=== PATIENT | female | born 1985 | race Caucasian/White ===

== ENCOUNTER 2016-08-20 12:36 | Emergency (ER) | payer BC, OTHER ==
[~2016-08-20] VITALS: Ht 162.6 cm; Wt 86.2 kg
[2016-08-20] MEDS ORDERED: SUCRALFATE 1 G TABLET PO STA (12:53)
[2016-08-20] MEDS ORDERED: FAMOTIDINE. 20 MG/2 ML VIAL IV ONE ×2 (13:00→13:12)
[2016-08-20] MEDS ORDERED: MAG HYDROX/AL HYDROX/SIMETH 30 ML LIQUID UDC PO ONE ×2 (13:00→14:00)
[2016-08-20] MEDS ORDERED: MAG HYDROX/AL HYDROX/SIMETH 30 ML LIQUID UDC ONE ×2 (13:12→14:03)
[2016-08-20 13:14] LABS: BASOPHILS % (AUTO) 0.3 % (0.0-2.0); EOSINOPHILS # (AUTO) 0.1 K/uL (0.0-0.7); EOSINOPHILS % (AUTO) 0.9 % (0.0-7.0); HEMATOCRIT 36.6 % (31.2-41.9); HEMOGLOBIN 12.6 g/dL (10.9-14.3); LYMPHOCYTES # (AUTO) 1.7 K/uL (20.0-40.0); LYMPHOCYTES % (AUTO) 15.1 % (20.5-51.5); MEAN CORPUSCULAR HEMOGLOBIN 29.8 uug (24.7-32.8); MEAN CORPUSCULAR HGB CONC 34 g/dL (32.3-35.6); MEAN CORPUSCULAR VOLUME 86.6 fL (75.5-95.3); MONOCYTES # (AUTO) 0.9 K/uL (2.0-10.0); MONOCYTES % (AUTO) 7.5 % (0.0-11.0); NEUTROPHILS # (AUTO) 8.6 K/uL (1.8-8.9); NEUTROPHILS % (AUTO) 76.2 % (38.5-71.5); PLATELET COUNT (AUTO) 162 K/uL (179-408); RED BLOOD CELL COUNT(AUTO) 4.23 MIL/uL (3.63-4.92); RED CELL DISTRIBUTION WIDTH 12.4 % (12.3-17.7); WHITE BLOOD COUNT (AUTO) 11.3 K/uL (3.8-11.8)
[2016-08-20 13:20] LABS: CALCIUM 9.1 mg/dL (8.5-10.1); CARBON DIOXIDE 24 mmol/L (21-32); CHLORIDE 102 mmol/L (98-107); CREATININE 0.6 mg/dL (0.6-1.3); GFR 115 mL/min (>60); GLUCOSE 113 mg/dL (74-106); POTASSIUM 4.1 mmol/L (3.5-5.1); SODIUM SERUM 137 mmol/L (136-145); UREA NITROGEN, BLOOD 8 mg/dL (7-18)
[2016-08-20 13:31] LABS: ALANINE AMINOTRANSFERASE 14 U/L (14-59); ALBUMIN 2.6 g/dL (3.4-5.0); ALKALINE PHOSPHATASE 91 U/L (50-136); ASPARTATE AMINOTRANSFERASE 15 U/L (15-37); BILIRUBIN,DIRECT < 0.1 mg/dL (0.0-0.2); BILIRUBIN,TOTAL 0.3 mg/dL (0.2-1.0); LIPASE 142 U/L (73-393); TOTAL PROTEIN, SERUM 6.9 g/dL (6.4-8.2)
[2016-08-20] MEDS ORDERED: FAMOTIDINE 20 MG TABLET PO ONE (14:00)
[2016-08-20] MEDS ORDERED: FAMOTIDINE 20 MG TABLET ONE (14:03)
--- NOTE | 2016-08-20 14:15 | NUR ---
IV removed. Catheter intact and site benign. Pressure and 4x4 gauze applied to site. No bleeding noted.
--- NOTE | 2016-08-20 14:16 | NUR ---
Patient discharged to home in stable conditon. Written and verbal after care instructions given. Patient verbalizes understanding of instructions. Stressed follow up with pmd/obgyn.
== END 2016-08-20 14:21 | disposition home or self-care (01) ==
LOC: ER 12:36
DX: K21.9 Gastro-esophageal reflux disease without esophagitis (principal)
CPT/HCPCS: 36415; 76705; 80048; 80076; 83690; 85025; 85730; 93005; 96374; 99285; A4663; J3490

== ENCOUNTER 2017-02-08 14:18 | Inpatient (IN) | payer BC, OTHER ==
[~2017-02-08] VITALS: Ht 162.6 cm; Wt 77.1 kg
[2017-02-08 15:01] LABS: *BILIRUBIN,URIN NEGATIVE (NEGATIVE); *BLOOD, URINE NEGATIVE (NEGATIVE); *CLARITY,URINE CLEAR (CLEAR); *COLOR,URINE YELLOW (YELLOW); *KETONES,URINE NEGATIVE (NEGATIVE); *PROTEIN,URINE NEGATIVE (NEGATIVE); *UROBILINOGEN,URINE 0.2 E.U./dl (NORMAL); LEUKOCYTE ESTERASE ,URINE NEGATIVE (NEGATIVE); NITRITE, URINE NEGATIVE (NEGATIVE); PH,URINE 6.5 (5.0-8.0); UGLUCOSE NEGATIVE (NEGATIVE)
[2017-02-08 15:05] LABS: *URINE HCG, QUAL NEGATIVE (NEGATIVE)
--- NOTE | 2017-02-08 15:05 | NUR ---
is at bedside doing his MSE on this patient.
[2017-02-08] MEDS ORDERED: ACETAMINOPHEN 650 MG/20.3 ML LIQUID UDC PO ONE (15:12)
[2017-02-08 15:13] LABS: SQUAMOUS EPITHELIAL CELL,UR FEW /HPF (NONE SEEN); WBC,URINE 0-3 /HPF (0-3)
[2017-02-08] MEDS ORDERED: IBUPROFEN 800 MG TABLET PO ONE (15:15)
[2017-02-08] MEDS ORDERED: ONDANSETRON IV *ER 4 MG/2 ML VIAL IV ONE (15:15)
[2017-02-08] MEDS ORDERED: IV NS 1000 ML 1,000 ML IV ONE (15:15)
[2017-02-08] MEDS ORDERED: IBUPROFEN 800 MG TABLET ONE (15:35)
[2017-02-08] MEDS ORDERED: ACETAMINOPHEN 650 MG/20.3 ML LIQUID UDC ONE (15:35)
[2017-02-08] MEDS ORDERED: ONDANSETRON 4 MG/2 ML VIAL ONE (15:35)
[2017-02-08 15:42] LABS: BASOPHILS # (AUTO) 0.1 K/uL (0.0-8.0); BASOPHILS % (AUTO) 0.8 % (0.0-2.0); EOSINOPHILS # (AUTO) 0.1 K/uL (0.0-0.7); EOSINOPHILS % (AUTO) 0.8 % (0.0-7.0); HEMATOCRIT 40.8 % (37-47); HEMOGLOBIN 13.5 G/DL (12.0-16.0); LYMPHOCYTES # (AUTO) 1.6 K/UL (0.8-4.8); LYMPHOCYTES % (AUTO) 14.7 % (20.5-51.5); MEAN CORPUSCULAR HEMOGLOBIN 27.5 UUG (27.0-31.0); MEAN CORPUSCULAR HGB CONC 33 g/dL (32.0-37.0); MEAN CORPUSCULAR VOLUME 82.9 FL (81.0-99.0); MONOCYTES % (AUTO) 9.5 % (0.0-11.0); NEUTROPHILS % (AUTO) 74.2 % (38.5-71.5); PLATELET COUNT (AUTO) 190 K/UL (150-450); RED BLOOD CELL COUNT(AUTO) 4.92 MIL/UL (4.2-5.4); WHITE BLOOD COUNT (AUTO) 10.8 K/UL (4.0-11.2)
[2017-02-08 15:45] LABS: CREATININE 0.9 mg/dL (0.6-1.3); POTASSIUM 3.7 mmol/L (3.5-5.1)
[2017-02-08 15:51] LABS: BILIRUBIN,TOTAL 0.6 mg/dL (0.2-1.0); TOTAL PROTEIN, SERUM 7.7 g/dL (6.4-8.2)
[2017-02-08] MEDS ORDERED: CEFTRIAXONE 1 G in IV DEXTROSE 5% 50 ML IV ONE (16:58)
[2017-02-08] MEDS ORDERED: AZITHROMYCIN IV 500 MG in IV DEXTROSE 5% 250 ML IV ONE (16:58)
[2017-02-08] MEDS ORDERED: IPRATROPIUM BROMIDE 0.5 MG/2.5 ML NEBU NEB ONE (17:01)
[2017-02-08] MEDS ORDERED: methylPREDNISolone SOD SUCC 125 MG/2 ML VIAL IV ONE (17:01)
[2017-02-08] MEDS ORDERED: ALBUTEROL SULFATE 2.5 MG/3 ML NEBU NEB ONE (17:15)
[2017-02-08] MEDS ORDERED: ALBUTEROL SULFATE 2.5 MG/3 ML NEBU ONE (17:25)
[2017-02-08] MEDS ORDERED: IPRATROPIUM BROMIDE 0.5 MG/2.5 ML NEBU ONE (17:25)
[2017-02-08] MEDS ORDERED: methylPREDNISolone SOD SUCC 40 MG/ML VIAL ONE (17:28)
--- NOTE | 2017-02-08 17:35 | NUR ---
Admitted to [facility] unit accompanied by ER staff per roney. Alert, oriented x4. Not in apparent distress. With chest discomfort upon coughing with body malaise and generalized aches. With ongoing IV antibiotics of Zithromax. Oriented to call light, equipment and unit. Routine admission care rendered
[2017-02-08 18:00] VITALS: BP 127/66
[2017-02-08 20:00] VITALS: BP 117/78
--- NOTE | 2017-02-08 20:15 | NUR ---
PT C/O OF BODY ACHES. MD NOTIFIED, WAITING FOR NEW ADMISSION ORDERS.
[2017-02-08] MEDS ORDERED: DEXAMETHASONE SOD PHOSPHATE 10 MG INJ IV STA (21:24)
[2017-02-08] MEDS ORDERED: MAGNESIUM HYDROXIDE 30 ML LIQUID UDC PO PRN (21:30)
[2017-02-08] MEDS ORDERED: AZITHROMYCIN 250 MG TABLET PO SCH (21:30)
[2017-02-08] MEDS ORDERED: CEFTRIAXONE 2 G in IV DEXTROSE 5% 100 ML IV SCH (21:30)
[2017-02-08] MEDS ORDERED: AZITHROMYCIN 250 MG TABLET PO ONE (21:30)
[2017-02-08] MEDS: HYDROCODONE/APAP 10-325 MG TABLET PO PRN (22:02)
[2017-02-08] MEDS ORDERED: HYDROCODONE/APAP 10-325 MG TABLET ONE (22:13)
[2017-02-08] MEDS ORDERED: DEXAMETHASONE SOD PHOSPHATE 4 MG INJ ONE (22:15)
[2017-02-08] MEDS: IV NS 1000 ML 1,000 ML IV PRN (23:18)
[2017-02-09] MEDS: ZOLPIDEM 5 MG TABLET PO PRN ×2 (01:53→20:54)
[2017-02-09] MEDS ORDERED: ZOLPIDEM 5 MG TABLET ONE (02:05)
[2017-02-09 05:07] VITALS: BP 121/73
--- NOTE | 2017-02-09 06:29 | NUR ---
PT SLEPT INTERMITTENTLY, NO ACUTE DISTRESS, NO SOB. PT NOTED TO HAVE OCCASIONAL DRY NON PRODUCTIVE COUGH, C/O OF SORE THROAT AND BODY ACHES/PAIN. ADMINISTERED MEDS ORDERED. IVF RUNNING, NO INFILTRATION NOTED. PT IS AFEBRILE. CALL LIGHT WITHIN REACH, SAFETY MEASURES IN PLACE. WILL CONTINUE TO MONITOR.
[2017-02-09 07:19] LABS: BILIRUBIN,TOTAL 0.3 mg/dL (0.2-1.0); CREATININE 0.8 mg/dL (0.6-1.3); MAGNESIUM 2.1 mg/dL (1.8-2.4); PHOSPHOROUS 2.4 mg/dL (2.5-4.9); POTASSIUM 3.9 mmol/L (3.5-5.1); TOTAL PROTEIN, SERUM 7.6 g/dL (6.4-8.2)
[2017-02-09 07:41] LABS: EOSINOPHILS % (AUTO) 0.1 % (0.0-7.0); HEMATOCRIT 40.3 % (37-47); HEMOGLOBIN 13.5 G/DL (12.0-16.0); LYMPHOCYTES # (AUTO) 0.6 K/UL (0.8-4.8); LYMPHOCYTES % (AUTO) 8.5 % (20.5-51.5); MEAN CORPUSCULAR HEMOGLOBIN 28.2 UUG (27.0-31.0); MEAN CORPUSCULAR HGB CONC 34 g/dL (32.0-37.0); MONOCYTES # (AUTO) 0.1 K/UL (0.1-1.30); MONOCYTES % (AUTO) 1.4 % (0.0-11.0); NEUTROPHILS # (AUTO) 6.2 K/UL (1.8-8.9); PLATELET COUNT (AUTO) 165 K/UL (150-450)
[2017-02-09 08:04] LABS: WHITE BLOOD COUNT (AUTO) 6.9 K/UL (4.0-11.2)
[2017-02-09] MEDS: HYDROCODONE/APAP 10-325 MG TABLET PO PRN ×2 (08:04→20:55)
[2017-02-09] MEDS: AZITHROMYCIN 250 MG TABLET PO SCH (09:52)
[2017-02-09 10:22] LABS: BAND % (MANUAL) 9 % (0-10); LYMPHOCYTES % (MANUAL) 10 % (20-40); MONOCYTES % (MANUAL) 5 % (2-10); NEUTROPHILS % (MANUAL) 76 % (42-75)
[2017-02-09 11:03] VITALS: BP 116/65
[2017-02-09] MEDS: HYDROCODONE BIT/HOMATROPINE 5 ML UDC PO PRN ×2 (11:51→18:31)
[2017-02-09] MEDS: ONDANSETRON 4 MG/2 ML VIAL IV PRN (11:59)
[2017-02-09 15:05] VITALS: BP 129/64
[2017-02-09] MEDS: OXYMETAZOLINE NASAL 0.05% 15 ML SPRAY NS PRN (15:06)
[2017-02-09] MEDS: ALBUTEROL SULFATE 2.5 MG/ 0.5 ML NEBU NEB PRN (15:47)
[2017-02-09] MEDS: IPRATROPIUM BROMIDE 0.5 MG/2.5 ML NEBU NEB PRN (15:47)
[2017-02-09] MEDS ORDERED: NEUTRA PHOS PACKET PO ONE (17:00)
[2017-02-09] MEDS ORDERED: ALBUTEROL SULFATE 1.25 MG/3 ML NEBU NEB SCH (19:30)
[2017-02-09] MEDS ORDERED: LEVALBUTEROL HCL NEB 0.63 MG/3 ML NEBU NEB SCH (19:30)
--- NOTE | 2017-02-09 19:40 | NUR ---
PT RECEIVED IN BED, AWAKE. A/OX4. ABLE TO MAKE NEEDS KNOWN. V/S STABLE. IN NO ACUTE DISTRESS. PT C/O OF HEADACHE 12/29. WILL ADMIN PAIN MEDICATION ORDERED. IVF INFUSING. SAFETY MEASURES IMPLEMENTED. CALL LIGHT WITHIN REACH
[2017-02-09 20:00] VITALS: BP 126/83
[2017-02-09] MEDS: IV NS 1000 ML 1,000 ML IV PRN (20:53)
[2017-02-09] MEDS: LACTOBACILLUS RHAMNOSUS GG 1 EACH CAPSULE PO SCH (20:54)
[2017-02-09] MEDS: CEFTRIAXONE 2 G in IV DEXTROSE 5% 100 ML IV SCH (20:54)
[2017-02-10] MEDS: LEVALBUTEROL HCL NEB 0.63 MG/3 ML NEBU NEB SCH ×4 (01:30→19:30)
--- NOTE | 2017-02-10 01:51 | NUR ---
Pt asleep. No respiratory distress noted. HHN tx not given. Medication not available. cargo supervisor Stephanie and charge nurse Margaret hinkle.
--- NOTE | 2017-02-10 05:50 | NUR ---
END OF SHIFT NOTES. PT SLEPT WELL THROUGHOUT SHIFT. IN STABLE CONDITION. IV ABX INFUSED. IVF INFUSING. BREATHING TX UNAVAILABLE. PT AWARE. NO C/O SOB. ALL NEEDS ATTENDED. SAFETY MAINTAINED. CALL LIGHT WITHIN REACH.
[2017-02-10 06:02] VITALS: BP 106/64
[2017-02-10 07:00] LABS: CREATININE 0.8 mg/dL (0.6-1.3); PHOSPHOROUS 4.1 mg/dL (2.5-4.9)
--- NOTE | 2017-02-10 08:00 | NUR ---
AWAKE COOPERATE WELL NO SOB OR PAIN CONTINUE IVF RESTING WITH CALL LIGHT IN REACH
[2017-02-10] MEDS: AZITHROMYCIN 250 MG TABLET PO SCH (08:41)
[2017-02-10] MEDS: LACTOBACILLUS RHAMNOSUS GG 1 EACH CAPSULE PO SCH ×2 (08:41→20:23)
[2017-02-10] MEDS: HYDROCODONE/APAP 10-325 MG TABLET PO PRN ×3 (08:43→21:15)
--- NOTE | 2017-02-10 10:30 | NUR ---
pt seen on rounding. pt vitals stable. no signs of acute distress. blood sugar within normal limits. no loc changes. no sob noted. pt is awake and alert. pt responds to commands. hr and rr wnl. pt is afebrile. pt is ambulatory with stready gait. no pain noted. will continue to reassess. Addendum: 02/10/17 at 1242 by CONY OTTO RN no blood sugar checks done or ordered.
[2017-02-10 11:24] VITALS: BP 102/64
[2017-02-10] MEDS: IV NS 1000 ML 1,000 ML IV PRN (12:00)
[2017-02-10] MEDS ORDERED: [UNRECOGNIZED DRUG - OTHER] PO (12:38)
[2017-02-10] MEDS: ACETAMINOPHEN 325 MG TABLET PO PRN (12:45)
[2017-02-10] MEDS: ALBUTEROL SULFATE 2.5 MG/ 0.5 ML NEBU NEB PRN ×2 (14:21→19:33)
[2017-02-10] MEDS: IPRATROPIUM BROMIDE 0.5 MG/2.5 ML NEBU NEB PRN ×2 (14:21→19:33)
--- NOTE | 2017-02-10 14:31 | NUR ---
pt was complaining of having chest pain after breathing treatments. notified rt who was giving treatments. rt states that pt breath sounds starting to clear up. vitals wnl. pt continues to complain about headache. pt given tylenol. will continue to reasssess
[2017-02-10 15:08] VITALS: BP 122/76
--- NOTE | 2017-02-10 15:35 | NUR ---
C/O OF H/A MEDICATION PRN NORCO GIVEN AND APPLY ICE PK TO FOREHEAD FOR COMFORT STATE FEEL BETTER
--- NOTE | 2017-02-10 16:30 | NUR ---
RESTING WELL AT THIS TIME STATE MEDICATION HELP TO RELIEF H/A PAIN
--- NOTE | 2017-02-10 17:00 | NUR ---
STABLE HEMODYNAMIC SAFETY MEASURE PROVIDED CALL LIGHT WITHIN REACH
--- NOTE | 2017-02-10 19:57 | NUR ---
RECEIVED SHIFT REPORT FROM PREVIOUS SHIFT NURSE. PATIENT IS IN STABLE CONDITION, NO S/S OF DISTRESS. A/O X3. PATIENT HAS NO COMPLAINTS OF PAIN AT THIS TIME. PATIENT ASKED FOR COUGH MEDICATION AND WILL BE PROVIDED. BED IN LOCKED/LOW POSITION WITH SIDE RAILS UP X2. CALL LIGHT WITHIN REACH. SAFETY AND COMFORT WILL BE PROVIDED THROUGHOUT SHIFT.
[2017-02-10 20:00] VITALS: BP 117/76
[2017-02-10] MEDS: HYDROCODONE BIT/HOMATROPINE 5 ML UDC PO PRN (20:23)
--- NOTE | 2017-02-10 21:00 | NUR ---
PT RECEIVED IN BED, AWAKE. IN STABLE CONDITION. C/O OF HEADACHE 11/28. PT HAS ICE PACK PLACED ON FOREHEAD FOR HEADACHE RELIEF. WILL ADMIN PAIN MEDICATION ORDERED. IVF INFUSING. PT REQUEST AMBIEN TO AIDE IN SLEEP. SAFETY MEASURES IMPLEMENTED. CALL LIGHT WITHIN REACH.
[2017-02-10] MEDS: CEFTRIAXONE 2 G in IV DEXTROSE 5% 100 ML IV SCH (21:10)
[2017-02-10] MEDS: ZOLPIDEM 5 MG TABLET PO PRN (21:10)
[2017-02-11] MEDS: IPRATROPIUM BROMIDE 0.5 MG/2.5 ML NEBU NEB PRN ×2 (01:13→19:22)
[2017-02-11] MEDS: ALBUTEROL SULFATE 2.5 MG/ 0.5 ML NEBU NEB PRN ×2 (01:13→19:22)
[2017-02-11] MEDS: HYDROCODONE BIT/HOMATROPINE 5 ML UDC PO PRN ×3 (02:04→21:36)
[2017-02-11] MEDS: IV NS 1000 ML 1,000 ML IV PRN ×2 (02:05→16:18)
[2017-02-11] MEDS: HYDROCODONE/APAP 10-325 MG TABLET PO PRN ×3 (03:08→20:24)
[2017-02-11 06:00] VITALS: BP 114/63
--- NOTE | 2017-02-11 06:30 | NUR ---
END OF SHIFT NOTES. PT SLEPT INTERMITTENTLY THROUGHOUT SHIFT. IN STABLE CONDITION. IV ABX INFUSED. IVF INFUSING. PT C/O OF SORE THROAT AND HEADACHE. PAIN MANAGED. ALL NEEDS ATTENDED. SAFETY MAINTAINED. CALL LIGHT WITHIN REACH.
[2017-02-11 07:01] LABS: BASOPHILS % (AUTO) 0.7 % (0.0-2.0); EOSINOPHILS # (AUTO) 0.2 K/uL (0.0-0.7); EOSINOPHILS % (AUTO) 2.8 % (0.0-7.0); HEMATOCRIT 38.2 % (31.2-41.9); HEMOGLOBIN 12.8 g/dL (10.9-14.3); LYMPHOCYTES # (AUTO) 2.5 K/uL (20.0-40.0); LYMPHOCYTES % (AUTO) 39.5 % (20.5-51.5); MEAN CORPUSCULAR HEMOGLOBIN 28.1 uug (24.7-32.8); MEAN CORPUSCULAR HGB CONC 33 g/dL (32.3-35.6); MONOCYTES # (AUTO) 0.5 K/uL (2.0-10.0); MONOCYTES % (AUTO) 8.1 % (0.0-11.0); NEUTROPHILS # (AUTO) 3.1 K/uL (1.8-8.9); NEUTROPHILS % (AUTO) 48.9 % (38.5-71.5); PLATELET COUNT (AUTO) 198 K/uL (179-408); RED BLOOD CELL COUNT(AUTO) 4.55 MIL/uL (3.63-4.92); WHITE BLOOD COUNT (AUTO) 6.4 K/uL (3.8-11.8)
[2017-02-11 07:13] LABS: CREATININE 0.7 mg/dL (0.6-1.3); PHOSPHOROUS 4.6 mg/dL (2.5-4.9); POTASSIUM 4.1 mmol/L (3.5-5.1)
[2017-02-11] MEDS: LACTOBACILLUS RHAMNOSUS GG 1 EACH CAPSULE PO SCH ×2 (08:39→20:23)
[2017-02-11] MEDS: AZITHROMYCIN 250 MG TABLET PO SCH (08:40)
--- NOTE | 2017-02-11 09:00 | NUR ---
beginning of shift assessment complete. pt stable, awake. no s/s respiratory distress. pt has non productive cough and c/o sore throat. norco and ice pack given for headache. call light is within patients reach. will continue to monitor.
[2017-02-11 11:46] VITALS: BP 116/68
[2017-02-11] MEDS: LEVALBUTEROL HCL NEB 0.63 MG/3 ML NEBU NEB SCH ×2 (12:49→19:22)
[2017-02-11] MEDS ORDERED: ALBUTEROL SULFATE 1.25 MG/3 ML NEBU NEB SCH (13:30)
[2017-02-11 15:37] VITALS: BP 134/92
--- NOTE | 2017-02-11 17:00 | NUR ---
IV SITE WAS LEAKING ,WILL RESTART A NEW ONE AFTER DINNER
--- NOTE | 2017-02-11 18:00 | NUR ---
STABLE HEMODYNAMIC NO ACUTE DISTRESS PAIN UNDER CONTROL SAFETY MEASURE PROVIDED CALL PRECIADO IN REACH
--- NOTE | 2017-02-11 18:30 | NUR ---
TRY TO START A NEW LINE IV BUT UNABLE AT THIS TIME
--- NOTE | 2017-02-11 19:40 | NUR ---
PT RECEIVED IN BED, AWAKE. FRIEND AT BEDSIDE. A/OX4. ABLE TO MAKE NEEDS KNOWN. V/S STABLE. IN NO ACUTE DISTRESS. PT CONT TO C/O HEADACHE 12/29. WILL ADMIN PAIN MEDICATION ORDERED. NO IV IN PLACE. WILL START IV. SAFETY MEASURES IMPLEMENTED. CALL LIGHT WITHIN REACH
[2017-02-11 20:00] VITALS: BP 131/79
[2017-02-11] MEDS: ZOLPIDEM 5 MG TABLET PO PRN (20:23)
[2017-02-11] MEDS: CEFTRIAXONE 1 G in IV DEXTROSE 5% 50 ML IV SCH (21:35)
[2017-02-11] MEDS: DOCUSATE SODIUM 100 MG CAPSULE PO SCH (21:35)
[2017-02-11] MEDS: HYDROCODONE/APAP 5-325MG TABLET PO PRN (22:54)
[2017-02-12 04:52] VITALS: BP 109/74
--- NOTE | 2017-02-12 06:20 | NUR ---
END OF SHIFT NOTES. PT SLEPT WELL THROUGHOUT SHIFT. IN STABLE CONDITION. IV ABX INFUSED. PAIN MANAGED. ALL NEEDS ATTENDED. SAFETY MAINTAINED. CALL LIGHT WITHIN REACH.
[2017-02-12] MEDS: HYDROCODONE/APAP 5-325MG TABLET PO PRN ×2 (08:45→20:10)
[2017-02-12] MEDS: OMEGA-3 FATTY ACIDS/FISH OIL CAPSULE PO SCH (08:46)
[2017-02-12] MEDS: [UNRECOGNIZED DRUG - OTHER] PO SCH (08:46)
[2017-02-12] MEDS: AZITHROMYCIN 250 MG TABLET PO SCH (08:46)
[2017-02-12] MEDS: LACTOBACILLUS RHAMNOSUS GG 1 EACH CAPSULE PO SCH ×2 (08:46→20:09)
[2017-02-12] MEDS: NORETHINDRONE PO SCH (08:46)
[2017-02-12] MEDS: LEVALBUTEROL HCL NEB 0.63 MG/3 ML NEBU NEB PRN ×2 (11:43→17:18)
[2017-02-12 11:55] VITALS: BP 113/73
[2017-02-12] MEDS: HYDROCODONE BIT/HOMATROPINE 5 ML UDC PO PRN ×2 (12:30→22:01)
[2017-02-12 15:37] VITALS: BP 101/68
[2017-02-12] MEDS: ACETAMINOPHEN 325 MG TABLET PO PRN (15:59)
--- NOTE | 2017-02-12 19:30 | NUR ---
Pt alert, awake, and oriented x 4. Non productive cough still present. States generalized pain to her body 6/10 and requesting pain medication. No fever noted. Pt to continue Rocephin atx IV therapy. Pt made aware of available breathing tx. Call light placed within reach. T 98.5. Continue to monitor.
--- NOTE | 2017-02-12 19:33 | NUR ---
NO CHANGES NOTED, PT IS SITTING IN BED COMFORTABLY. PT IS NOTED TO HAVE HOARSE VOICE, AND SOME LEFT SIDE CHEST WHEEZING. NO PAIN NOTED. IV INTACT/PATENT. ALL SAFETY NEEDS ARE MET. PT IS CALM, ALERT AND ORIENTED X3.
[2017-02-12 20:00] VITALS: BP 126/68
[2017-02-12] MEDS: DOCUSATE SODIUM 100 MG CAPSULE PO SCH (20:09)
[2017-02-12] MEDS: CEFTRIAXONE 1 G in IV DEXTROSE 5% 50 ML IV SCH (20:17)
[2017-02-12] MEDS: ZOLPIDEM 5 MG TABLET PO PRN (22:01)
[2017-02-12] MEDS ORDERED: methylPREDNISolone SOD SUCC 40 MG/ML VIAL ONE (22:43)
[2017-02-12] MEDS: methylPREDNISolone SOD SUCC 40 MG/ML VIAL IV SCH (23:49)
[2017-02-13 05:16] VITALS: BP 117/79
--- NOTE | 2017-02-13 05:31 | NUR ---
Pt awake alert with no complains of pain at this time. States she will let us now if she wants a breathing tx done. No reaction to current Rocephin IV abx. Continue to monitor. Call light placed within reach. T-98.3
--- NOTE | 2017-02-13 06:00 | NUR ---
PT ALERT AWAKE IN NO DISTRESS. DENIES ANY PAIN AT THIS TIME. NO PRODUCTIVE COUGH PRESENT OR REACTION TO ROCEPHIN ABX IV TX. PT AWARE OF CHEST X-RAY AND LABS. CONTINUE TO MONITOR.
[2017-02-13 06:48] LABS: MAGNESIUM 2.2 mg/dL (1.8-2.4); PHOSPHOROUS 2.8 mg/dL (2.5-4.9)
[2017-02-13 06:49] LABS: BASOPHILS % (AUTO) 0.2 % (0.0-2.0); EOSINOPHILS % (AUTO) 0.3 % (0.0-7.0); HEMATOCRIT 44.3 % (37-47); HEMOGLOBIN 15.2 G/DL (12.0-16.0); LYMPHOCYTES # (AUTO) 1.1 K/UL (0.8-4.8); LYMPHOCYTES % (AUTO) 12.6 % (20.5-51.5); MEAN CORPUSCULAR HEMOGLOBIN 28.5 UUG (27.0-31.0); MEAN CORPUSCULAR HGB CONC 34 g/dL (32.0-37.0); MEAN CORPUSCULAR VOLUME 82.9 FL (81.0-99.0); MONOCYTES # (AUTO) 0.1 K/UL (0.1-1.30); MONOCYTES % (AUTO) 0.9 % (0.0-11.0); NEUTROPHILS # (AUTO) 7.5 K/UL (1.8-8.9); PLATELET COUNT (AUTO) 303 K/UL (150-450); RED BLOOD CELL COUNT(AUTO) 5.35 MIL/UL (4.2-5.4); WHITE BLOOD COUNT (AUTO) 8.7 K/UL (4.0-11.2)
--- NOTE | 2017-02-13 07:42 | NUR ---
PT RECEIVED IN BED, SLEEPING. A/OX4. ABLE TO MAKE NEEDS KNOWN. V/S STABLE. IN NO ACUTE DISTRESS. PT CONT TO C/O HEADACHE 12/29. WILL ADMIN PAIN MEDICATION ORDERED. SAFETY MEASURES IMPLEMENTED. CALL LIGHT WITHIN REACH
[2017-02-13] MEDS: LACTOBACILLUS RHAMNOSUS GG 1 EACH CAPSULE PO SCH ×2 (08:04→20:39)
[2017-02-13] MEDS: OMEGA-3 FATTY ACIDS/FISH OIL CAPSULE PO SCH (08:04)
[2017-02-13] MEDS: AZITHROMYCIN 250 MG TABLET PO SCH (08:04)
[2017-02-13] MEDS: OXYMETAZOLINE NASAL 0.05% 15 ML SPRAY NS PRN (08:06)
[2017-02-13] MEDS: methylPREDNISolone SOD SUCC 40 MG/ML VIAL IV SCH ×2 (08:18→20:39)
[2017-02-13] MEDS: NORETHINDRONE PO SCH (08:37)
[2017-02-13] MEDS: [UNRECOGNIZED DRUG - OTHER] PO SCH (08:37)
[2017-02-13 11:25] VITALS: BP 111/75
[2017-02-13 15:08] VITALS: BP 107/73
[2017-02-13] MEDS ORDERED: MORPHINE SULFATE 2 MG/1 ML DISP.SYRIN IV ONE (16:30)
[2017-02-13] MEDS: HYDROCODONE/APAP 5-325MG TABLET PO PRN (17:58)
--- NOTE | 2017-02-13 18:05 | NUR ---
Pt awake alert with complains of pain at this time.norco 5mg given per md orders
[2017-02-13] MEDS: LEVALBUTEROL HCL NEB 0.63 MG/3 ML NEBU NEB PRN (19:27)
--- NOTE | 2017-02-13 19:30 | NUR ---
PT IN BED DIANA AWAKE AND ORIENTED X 4. STATES SHE WILL REQUEST A BREATHING TX AND PAIN MEDICATION LATER TONIGHT. C/O GENERALIZED PAIN AND WEAKNESS. MINOR WHEEZING PRESENT TO LEFT UPPER LOBE. BP 93/58. T 98.4. CONTINUE TO MONITOR. CALL LIGHT PLACED WITHIN REACH.
[2017-02-13 20:00] VITALS: BP 93/58
[2017-02-13] MEDS: DOCUSATE SODIUM 100 MG CAPSULE PO SCH (20:39)
[2017-02-13] MEDS: CEFTRIAXONE 1 G in IV DEXTROSE 5% 50 ML IV SCH (20:39)
[2017-02-13] MEDS: HYDROMORPHONE 1 MG/1 ML DISP.SYRIN IV PRN (21:06)
[2017-02-13] MEDS: ZOLPIDEM 5 MG TABLET PO PRN (22:27)
[2017-02-13] MEDS: HYDROCODONE BIT/HOMATROPINE 5 ML UDC PO PRN (22:27)
[2017-02-14 05:48] VITALS: BP 100/45
--- NOTE | 2017-02-14 07:30 | NUR ---
PT RECEIVED IN BED, SLEEPING. A/OX4. ABLE TO MAKE NEEDS KNOWN. V/S STABLE. IN NO ACUTE DISTRESS. . SAFETY MEASURES IMPLEMENTED. CALL LIGHT WITHIN REACH
[2017-02-14] MEDS: [UNRECOGNIZED DRUG - OTHER] PO SCH (08:06)
[2017-02-14] MEDS: LACTOBACILLUS RHAMNOSUS GG 1 EACH CAPSULE PO SCH ×2 (08:06→20:47)
[2017-02-14] MEDS: AZITHROMYCIN 250 MG TABLET PO SCH (08:06)
[2017-02-14] MEDS: NORETHINDRONE PO SCH (08:06)
[2017-02-14] MEDS: OMEGA-3 FATTY ACIDS/FISH OIL CAPSULE PO SCH (08:06)
[2017-02-14] MEDS: methylPREDNISolone SOD SUCC 40 MG/ML VIAL IV SCH ×2 (08:07→20:26)
[2017-02-14 11:18] VITALS: BP 125/87
[2017-02-14] MEDS: HYDROMORPHONE 1 MG/1 ML DISP.SYRIN IV PRN ×3 (14:24→23:50)
[2017-02-14 15:04] VITALS: BP 125/80
[2017-02-14] MEDS: LEVALBUTEROL HCL NEB 0.63 MG/3 ML NEBU NEB PRN ×2 (17:00→21:34)
[2017-02-14] MEDS: HYDROCODONE BIT/HOMATROPINE 5 ML UDC PO PRN ×2 (17:05→23:13)
[2017-02-14 20:00] VITALS: BP 146/81
--- NOTE | 2017-02-14 20:00 | NUR ---
RECEIVED PATIENT AWAKE IN BED. PATIENT IS A/O X4. C/O PAIN, GENERALIZED 11/28. PATIENT GIVEN DILAUDID 0.5MG IV PRN PER LEATHER DRESSER. VSS. H/L INTACT AND PATENT. ON RA SATING 97%. NO RESP. DISTRESS NOTED. DENIES SOB. CALL LIGHT IN REACH. ALL NEEDS ATTENDED. WILL CONTINUE TO MONITOR.
--- NOTE | 2017-02-14 20:10 | NUR ---
PATIENT ASKING IF SOMETHING CAN BE ORDERED FOR SLEEP TONIGHT. STATED THAT SHE HAD AMBIEN LAST NIGHT AND IT WAS INEFFECTIVE. CALLED OUT TO DR. SMITH FOR FURTHER ORDERS. RECEIVED ORDER FOR PATIENT TO HAVE ATIVAN 1MG IV X1 FOR SLEEP. ALL NEEDS ATTENDED. WILL CONTINUE TO MONITOR.
[2017-02-14] MEDS: CEFTRIAXONE 1 G in IV DEXTROSE 5% 50 ML IV SCH (20:26)
[2017-02-14] MEDS ORDERED: LORAZEPAM 2 MG/1 ML VIAL IV ONE (20:45)
[2017-02-14] MEDS: DOCUSATE SODIUM 100 MG CAPSULE PO SCH (20:47)
[2017-02-14] MEDS ORDERED: AZITHROMYCIN IV 500 MG in IV DEXTROSE 5% 250 ML IV SCH (21:00)
--- NOTE | 2017-02-14 21:16 | NUR ---
PATIENT ASKING FOR ATIVAN. PATIENT GIVEN ATIVAN 1MG IV PRN PER CONTINUOUS MINING MACHINE LODE MINER. VSS. WILL CONTINUE TO MONITOR.
--- NOTE | 2017-02-14 23:00 | NUR ---
PATIENT WIDE AWAKE IN BED. ATIVAN INEFFECTIVE. PATIENT STATED THAT SHE KEEPS THINKING ABOUT HER BABY AT HOME AND IS SAD ABOUT BEING AWAY FROM HER NEW BABY FOR SO LONG. PROVIDED EMOTIONAL SUPPORT AND MADE PATIENT COMFORTABLE. WILL CONTINUE TO MONITOR AND ASSESS.
--- NOTE | 2017-02-15 01:05 | NUR ---
PATIENT STILL AWAKE AND FRUSTRATED THAT SHE CANT SLEEP. STATING, "I DON'T UNDERSTAND WHY I CANT GO TO SLEEP. I WANT AND NEED TO SLEEP SO BAD." PATIENT AGREED TO TRY AMBIEN AGAIN TO SEE IF IT WOULD WORK TONIGHT. PATIENT GIVEN AMBIEN 5MG PO PRN FOR SLEEP AND TYLENOL 650MG PO PRN FOR MILD DISCOMFORT. VSS. ON RA SATING 97-98%. DENIES ANY SOB. CALL LIGHT IN REACH. ALL NEEDS ATTENDED, WILL CONTINUE TO MONITOR AND ASSESS.
[2017-02-15] MEDS: ACETAMINOPHEN 325 MG TABLET PO PRN ×2 (01:06→10:48)
[2017-02-15] MEDS: ZOLPIDEM 5 MG TABLET PO PRN (01:06)
--- NOTE | 2017-02-15 02:00 | NUR ---
PATIENT STILL AWAKE IN BED. PATIENT GIVEN CUP OF HOT MILK. WILL CONTINUE TO MONITOR.
--- NOTE | 2017-02-15 02:30 | NUR ---
PATIENT ASLEEP IN BED. SLEEPING WELL. NO S/S OF PAIN OR DISCOMFORT. NO RESP. DISTRESS NOTED. CALL LIGHT IN REACH. PATIENT MONITORED CLOSELY. ALL NEEDS ATTENDED. WILL CONTINUE TO MONITOR.
[2017-02-15] MEDS: LEVALBUTEROL HCL NEB 0.63 MG/3 ML NEBU NEB PRN (06:30)
--- NOTE | 2017-02-15 06:41 | NUR ---
PATIENT ASLEEP. SLEEPING WELL. HR STABLE AND RESPIRATIONS WNL. LAB NOTIFIED TO COME BACK TO DRAW AM LABS AROUND 8AM. PATIENT WANTED TO SLEEP. WILL CHECK BP WHEN PATIENT WAKES UP. NO S/S OF ANY SOB OR RESP. DISTRESS. WILL CONTINUE TO MONITOR.
[2017-02-15 07:16] VITALS: BP 115/78
--- NOTE | 2017-02-15 08:00 | NUR ---
AWAKE ALERT COOPERASTE WELL NO PAIN OR SOB RA O2 SAT WNL HL INPLACE RFA HAND RESTING WELL WITH CALL LIGHT IN REACH
[2017-02-15] MEDS: LACTOBACILLUS RHAMNOSUS GG 1 EACH CAPSULE PO SCH ×2 (08:21→20:16)
[2017-02-15] MEDS: methylPREDNISolone SOD SUCC 40 MG/ML VIAL IV SCH ×2 (08:21→20:15)
[2017-02-15] MEDS: OMEGA-3 FATTY ACIDS/FISH OIL CAPSULE PO SCH (08:21)
[2017-02-15] MEDS: [UNRECOGNIZED DRUG - OTHER] PO SCH (08:22)
[2017-02-15] MEDS: NORETHINDRONE PO SCH (08:22)
[2017-02-15] MEDS: HYDROMORPHONE 1 MG/1 ML DISP.SYRIN IV PRN ×4 (08:36→23:41)
[2017-02-15 08:47] LABS: BASOPHILS % (AUTO) 0.1 % (0.0-2.0); EOSINOPHILS % (AUTO) 0.1 % (0.0-7.0); HEMATOCRIT 43.5 % (37-47); HEMOGLOBIN 14.3 G/DL (12.0-16.0); LYMPHOCYTES # (AUTO) 2.1 K/UL (0.8-4.8); LYMPHOCYTES % (AUTO) 10.8 % (20.5-51.5); MEAN CORPUSCULAR HEMOGLOBIN 27.6 UUG (27.0-31.0); MEAN CORPUSCULAR HGB CONC 33 g/dL (32.0-37.0); MEAN CORPUSCULAR VOLUME 83.8 FL (81.0-99.0); MONOCYTES # (AUTO) 0.9 K/UL (0.1-1.30); MONOCYTES % (AUTO) 4.5 % (0.0-11.0); NEUTROPHILS # (AUTO) 16.2 K/UL (1.8-8.9); NEUTROPHILS % (AUTO) 84.5 % (38.5-71.5); PLATELET COUNT (AUTO) 353 K/UL (150-450); RED BLOOD CELL COUNT(AUTO) 5.19 MIL/UL (4.2-5.4); WHITE BLOOD COUNT (AUTO) 19.3 K/UL (4.0-11.2)
[2017-02-15 08:49] LABS: CREATININE 0.8 mg/dL (0.6-1.3); MAGNESIUM 2.1 mg/dL (1.8-2.4); PHOSPHOROUS 4.6 mg/dL (2.5-4.9); POTASSIUM 4.1 mmol/L (3.5-5.1)
[2017-02-15] MEDS ORDERED: AZITHROMYCIN IV 500 MG in IV DEXTROSE 5% 250 ML IV SCH (09:00)
[2017-02-15] MEDS: ONDANSETRON 4 MG/2 ML VIAL IV PRN (10:47)
[2017-02-15 11:50] VITALS: BP 120/83
--- NOTE | 2017-02-15 12:00 | NUR ---
RESTING WELL EAT LUNCH MOD AMT STATE PAIN MED HELP TO RELIEF PAIN CONTINUE IVPB ANTIBIOTICS
--- NOTE | 2017-02-15 12:00 | NUR ---
REMIND PATIENT THAT NEED URINE AND SPUTUM TO LAB [facility] IF POSS,UNDERSTAND
--- NOTE | 2017-02-15 15:00 | NUR ---
DR CARTER SEEN PATIENT AND LAB RESULT THIS PM ,NO ACUTE DISTRESS OR PAIN OR SOB OOB AMB WELL SELF
[2017-02-15 16:00] VITALS: BP 118/78
--- NOTE | 2017-02-15 17:00 | NUR ---
PATIENT WAS RESTING WELL MOST OF THE TIME NO ACUTE DISTRESS SAFETY MEASURE PROVIDED CALL LIGHT WITHIN REACH PAIN UNDER CONTROL
--- NOTE | 2017-02-15 19:30 | NUR ---
RECEIVED PATIENT LAYING IN BED. COMFORTABLE. NO ACUTE DISTRESS NOTED. A&O X 4. SKIN INTACT. SAFETY INITIATED. CALL LIGHT WITHIN REACH. WILL CONTINUE TO MONITOR.
[2017-02-15] MEDS: CEFTRIAXONE 1 G in IV DEXTROSE 5% 50 ML IV SCH (20:14)
--- NOTE | 2017-02-15 20:15 | NUR ---
PATIENT RAN A SLIGHT TEMP. 99.8. PATIENT FEELING WARM. NORCO 5-325 GIVEN, WILL CONTINUE TO MONITOR.
[2017-02-15] MEDS: DOCUSATE SODIUM 100 MG CAPSULE PO SCH (20:16)
[2017-02-15] MEDS: HYDROCODONE/APAP 5-325MG TABLET PO PRN (20:16)
[2017-02-15 20:33] VITALS: BP 133/76
[2017-02-16] MEDS: ZOLPIDEM 5 MG TABLET PO PRN (01:18)
--- NOTE | 2017-02-16 01:18 | NUR ---
PATIENT CANNOT SLEEP, REQUEST AMBIEN. GIVEN AMBIEN WILL CONTINUE TO MONITOR.
[2017-02-16] MEDS ORDERED: LORAZEPAM 2 MG/1 ML VIAL IV ONE (01:45)
[2017-02-16] MEDS ORDERED: LORAZEPAM 2 MG/1 ML VIAL ONE (01:59)
--- NOTE | 2017-02-16 02:18 | NUR ---
PATIENT STILL AWAKE. AMBIEN NOT EFFECTIVE. ATIVAN 0.5 ORDERED ONCE PER MD ORDERS. WILL CONTINUE TO MONITOR.
[2017-02-16] MEDS: HYDROMORPHONE 1 MG/1 ML DISP.SYRIN IV PRN ×2 (05:00→10:55)
[2017-02-16] MEDS: ONDANSETRON 4 MG/2 ML VIAL IV PRN (05:00)
--- NOTE | 2017-02-16 06:30 | NUR ---
NO CHANGES T/O SHIFT. NO ACUTE DISTRESS NOTED. PATIENT C/O HEADACHE, GAVE MED, STATED SOME RELIEF. PATIENT C/O INSOMNIA, GAVE AMBIEN, NO RELIEF. ATIVAN WAS GIVEN PER MD ORDERS, PATIENT WAS ABLE TO SLEEP. VITAL SIGNS STABLE. FEVER WAS RESOLVED. SAFETY AND COMFORT MEASURES MAINTAINED T/O SHIFT. ALL MEDS GIVEN ORDERED. ALL NEEDS MET.
[2017-02-16 06:36] VITALS: BP 109/59
[2017-02-16] MEDS: NORETHINDRONE PO SCH (09:00)
[2017-02-16] MEDS: [UNRECOGNIZED DRUG - OTHER] PO SCH (09:00)
[2017-02-16] MEDS ORDERED: AZITHROMYCIN 250 MG TABLET PO SCH (09:00)
[2017-02-16] MEDS: OMEGA-3 FATTY ACIDS/FISH OIL CAPSULE PO SCH (09:37)
[2017-02-16] MEDS: LACTOBACILLUS RHAMNOSUS GG 1 EACH CAPSULE PO SCH (09:37)
[2017-02-16] MEDS: LEVALBUTEROL HCL NEB 0.63 MG/3 ML NEBU NEB PRN (11:18)
--- NOTE | 2017-02-16 11:54 | NUR ---
Duplicate order for IV Ativan for 0100, dose was given at 0230. patient was medicated with dilaudid 0.5 mg IV pain was 7-8/10, post assessment was 11/28. will try to offer [place]. patient only coughing up saliva.
[2017-02-16 11:56] VITALS: BP 108/71
[2017-02-16] MEDS: HYDROCODONE BIT/HOMATROPINE 5 ML UDC PO PRN (12:11)
[2017-02-16] MEDS ORDERED: ALBU8HFA4 INH (13:02)
[2017-02-16] MEDS ORDERED: OMEG1CAP PO (13:02)
[2017-02-16] MEDS ORDERED: HYDR-3326 PO (13:02)
[2017-02-16] MEDS ORDERED: LACT1CAP57 PO (13:02)
[2017-02-16] MEDS ORDERED: AZIT250T6 PO (13:02)
--- NOTE | 2017-02-16 14:00 | NUR ---
Patient was discharge home, discharge instructions given with prescription hard copy written by Dr Salvador, patient waited til prescription was bought to patient. Boyfriend here to take patient home, Patient to continue oral azithromycin x 5 days, has prescription for [place] 5/325 for pain, dilaudid 0.5 mg IV given for pain, earlier today. patient complained of migraine headache. Hep lock was removed. Nurse accompanied patient to street level.
[2017-03-02] MEDS ORDERED: DICY20TA11 PO (17:54)
[2017-03-02] MEDS ORDERED: ONDA4TAB5 PO (17:54)
== END 2017-02-16 13:57 | disposition home or self-care (01) | DRG 194 ==
LOC: ER 14:22 → MED 17:32
PROVIDERS: ADMIT Nurse Practitioner Acute Care; ATTEND Nurse Practitioner Acute Care
DX: J18.9 Pneumonia, unspecified organism (principal); J45.901 Unspecified asthma with (acute) exacerbation; E83.39 Other disorders of phosphorus metabolism; E66.9 Obesity, unspecified; Z80.9 Family history of malignant neoplasm, unspecified; Z82.3 Family history of stroke; Z82.49 Family history of ischemic heart disease and other diseases of the circulatory system; Z68.29 Body mass index [BMI] 29.0-29.9, adult; E78.5 Hyperlipidemia, unspecified; K56.41 Fecal impaction; J20.9 Acute bronchitis, unspecified
CPT/HCPCS: 36415; 71010; 83690; 83735; 84100; 84703; 85025; 86403; 87040; 87070; 87278; 87400; 94640; 94664; A4663; J0456; J0696; J1100; J1170; J2060; J2270; J2405; J2920; J3590; J7030; J7060; J7614; Q0144

== ENCOUNTER 2017-02-26 23:09 | Emergency (ER) | payer BC, OTHER ==
[~2017-02-26] VITALS: Ht 162.6 cm; Wt 73.5 kg
[~2017-02-26 23:09] MED LIST: ALBU8HFA4 INH; AZIT250T6 PO; HYDR-3326 PO; LACT1CAP57 PO; OMEG1CAP PO; [UNRECOGNIZED DRUG - OTHER] PO
--- NOTE | 2017-02-27 00:05 | NUR ---
PT GIVEN PAIN MED BY MIGUELANGEL SAMUEL
[2017-02-27 00:09] LABS: BASOPHILS # (AUTO) 0.1 K/uL (0.0-8.0); BASOPHILS % (AUTO) 0.7 % (0.0-2.0); EOSINOPHILS # (AUTO) 0.1 K/uL (0.0-0.7); EOSINOPHILS % (AUTO) 1.4 % (0.0-7.0); HEMATOCRIT 39.7 % (37-47); HEMOGLOBIN 13.4 G/DL (12.0-16.0); LYMPHOCYTES # (AUTO) 2.3 K/UL (0.8-4.8); LYMPHOCYTES % (AUTO) 30.8 % (20.5-51.5); MEAN CORPUSCULAR HEMOGLOBIN 28.2 UUG (27.0-31.0); MEAN CORPUSCULAR HGB CONC 34 g/dL (32.0-37.0); MEAN CORPUSCULAR VOLUME 83.7 FL (81.0-99.0); MONOCYTES # (AUTO) 0.7 K/UL (0.1-1.30); MONOCYTES % (AUTO) 8.9 % (0.0-11.0); NEUTROPHILS # (AUTO) 4.2 K/UL (1.8-8.9); NEUTROPHILS % (AUTO) 58.2 % (38.5-71.5); PLATELET COUNT (AUTO) 261 K/UL (150-450); RED BLOOD CELL COUNT(AUTO) 4.75 MIL/UL (4.2-5.4); WHITE BLOOD COUNT (AUTO) 7.4 K/UL (4.0-11.2)
--- NOTE | 2017-02-27 00:10 | NUR ---
Patient asking matthew galarza for dilaudid medication for pain.Stating "It is the only medication that works."
[2017-02-27] MEDS ORDERED: KETOROLAC TROMETHAMINE 30 MG INJ IM ONE (00:15)
[2017-02-27] MEDS ORDERED: ONDANSETRON ODT 4 MG TAB.RAPDIS SL ONE (00:15)
[2017-02-27 00:18] LABS: *BILIRUBIN,URIN NEGATIVE (NEGATIVE); *BLOOD, URINE NEGATIVE (NEGATIVE); *CLARITY,URINE SLIGHTLY CLOUDY (CLEAR); *COLOR,URINE YELLOW (YELLOW); *KETONES,URINE NEGATIVE (NEGATIVE); *PROTEIN,URINE NEGATIVE (NEGATIVE); *UROBILINOGEN,URINE 0.2 E.U./dl (NORMAL); LEUKOCYTE ESTERASE ,URINE NEGATIVE (NEGATIVE); NITRITE, URINE NEGATIVE (NEGATIVE); UGLUCOSE NEGATIVE (NEGATIVE)
--- NOTE | 2017-02-27 00:18 | NUR ---
Before giving toradol shot patient states "Give me the shot and I will prove to you that it will not work."
[2017-02-27 00:19] LABS: BILIRUBIN,DIRECT 0.1 mg/dL (0.0-0.2); BILIRUBIN,TOTAL 0.6 mg/dL (0.2-1.0); CREATININE 1.1 mg/dL (0.6-1.3); POTASSIUM 3.4 mmol/L (3.5-5.1); TOTAL PROTEIN, SERUM 7.4 g/dL (6.4-8.2)
[2017-02-27] MEDS ORDERED: KETOROLAC TROMETHAMINE 30 MG INJ ONE (00:29)
[2017-02-27] MEDS ORDERED: ONDANSETRON ODT 4 MG TAB.RAPDIS ONE (00:34)
[2017-02-27 01:08] LABS: BACTERIA,URINE FEW /HPF (NONE SEEN); RBC,URINE NONE SEEN /HPF (0-3); RENAL EPITHELIAL CELLS,URINE FEW /LPF (NONE SEEN); SQUAMOUS EPITHELIAL CELL,UR MANY /HPF (NONE SEEN); WBC,URINE 0-3 /HPF (0-3)
--- NOTE | 2017-02-27 01:40 | NUR ---
Patient eloped from facility. ER physician notified.
[2017-03-02] MEDS ORDERED: ONDA4TAB5 PO (17:54)
[2017-03-02] MEDS ORDERED: DICY20TA11 PO (17:54)
== END 2017-02-27 01:47 | disposition left against medical advice (07) ==
LOC: ER 23:11
DX: B34.9 Viral infection, unspecified (principal); Z76.5 Malingerer [conscious simulation]
CPT/HCPCS: 36415; 71010; 80048; 80076; 81001; 84703; 85025; 96372; 99285; A4663; J1885; Q0162

== ENCOUNTER 2017-03-01 15:05 | Emergency (ER) | payer BC, OTHER ==
[~2017-03-01] VITALS: Ht 162.6 cm; Wt 72.6 kg
[~2017-03-01 15:05] MED LIST changes: -AZIT250T6 PO
[2017-03-01] MEDS ORDERED: KETOROLAC TROMETHAMINE 60 MG INJ IM ONE ×2 (16:00→16:25)
--- NOTE | 2017-03-01 16:12 | NUR ---
Patient discharged to home in stable conditon. Written and verbal after care instructions given. Patient verbalizes understanding of instructions.
[2017-03-02] MEDS ORDERED: DICY20TA11 PO (17:54)
[2017-03-02] MEDS ORDERED: ONDA4TAB5 PO (17:54)
== END 2017-03-01 16:13 | disposition home or self-care (01) ==
LOC: ER 15:06
DX: G43.909 Migraine, unspecified, not intractable, without status migrainosus (principal)
CPT/HCPCS: 96372; 99283; A4663; J1885

== ENCOUNTER 2017-03-01 21:32 | Inpatient (IN) | payer BC, OTHER ==
[~2017-03-01] VITALS: Ht 162.6 cm; Wt 73.5 kg
[2017-03-01] MEDS ORDERED: HYDROMORPHONE 1 MG/1 ML DISP.SYRIN IV ONE ×2 (22:00→23:00)
[2017-03-01] MEDS ORDERED: FAMOTIDINE. 20 MG/2 ML VIAL IV ONE ×2 (22:00→22:14)
[2017-03-01] MEDS ORDERED: ONDANSETRON 4 MG/2 ML VIAL IV ONE (22:00)
[2017-03-01] MEDS ORDERED: DICYCLOMINE HCL 10 MG/5 ML UDC LIQ PO ONE (22:00)
[2017-03-01] MEDS ORDERED: IV NORMAL SALINE 1000 ML BAG IV ONE (22:00)
[2017-03-01] MEDS ORDERED: ONDANSETRON 4 MG/2 ML VIAL ONE (22:13)
[2017-03-01] MEDS ORDERED: HYDROMORPHONE 1 MG/1 ML DISP.SYRIN ONE ×3 (22:13→23:54)
[2017-03-01] MEDS ORDERED: DICYCLOMINE HCL 10 MG/5 ML UDC LIQ ONE (22:13)
[2017-03-01 22:17] LABS: CREATININE 0.9 mg/dL (0.6-1.3); POTASSIUM 3.8 mmol/L (3.5-5.1)
[2017-03-01 22:20] LABS: BASOPHILS % (AUTO) 0.7 % (0.0-2.0); EOSINOPHILS # (AUTO) 0.1 K/uL (0.0-0.7); HEMATOCRIT 39.3 % (37-47); HEMOGLOBIN 13.1 G/DL (12.0-16.0); LYMPHOCYTES # (AUTO) 2.2 K/UL (0.8-4.8); LYMPHOCYTES % (AUTO) 34.6 % (20.5-51.5); MEAN CORPUSCULAR HEMOGLOBIN 28.1 UUG (27.0-31.0); MEAN CORPUSCULAR HGB CONC 33 g/dL (32.0-37.0); MEAN CORPUSCULAR VOLUME 84.5 FL (81.0-99.0); MONOCYTES # (AUTO) 0.5 K/UL (0.1-1.30); MONOCYTES % (AUTO) 8.4 % (0.0-11.0); NEUTROPHILS # (AUTO) 3.5 K/UL (1.8-8.9); NEUTROPHILS % (AUTO) 54.3 % (38.5-71.5); PLATELET COUNT (AUTO) 212 K/UL (150-450); RED BLOOD CELL COUNT(AUTO) 4.65 MIL/UL (4.2-5.4); WHITE BLOOD COUNT (AUTO) 6.3 K/UL (4.0-11.2)
[2017-03-01 22:23] LABS: BILIRUBIN,DIRECT 0.1 mg/dL (0.0-0.2); BILIRUBIN,TOTAL 0.7 mg/dL (0.2-1.0); TOTAL PROTEIN, SERUM 7.3 g/dL (6.4-8.2)
[2017-03-01] MEDS ORDERED: KETOROLAC TROMETHAMINE 30 MG INJ IVP ONE (22:30)
[2017-03-01] MEDS ORDERED: KETOROLAC TROMETHAMINE 30 MG INJ ONE (22:43)
--- NOTE | 2017-03-01 23:20 | NUR ---
Call placed to [facility], Dr. Arias will be paged.
[2017-03-01] MEDS ORDERED: Z GUARD REMEDY PASTE 57 GM TUBE TOP PRN (23:45)
[2017-03-01] MEDS ORDERED: PANTOPRAZOLE SODIUM 40 MG VIAL IV SCH (23:45)
[2017-03-01] MEDS: HYDROMORPHONE 1 MG/1 ML DISP.SYRIN IV ONE (23:50)
[2017-03-02] MEDS: HYDROMORPHONE 1 MG/1 ML DISP.SYRIN IV ONE (00:23)
--- NOTE | 2017-03-02 00:27 | NUR ---
Pt. admitted to TELE, under care of Dr. Arias Belongs List completed
--- NOTE | 2017-03-02 00:30 | NUR ---
PT ALERT ORIENTED X 4 COMPLAINING OF ABDOMINAL PAIN. STATES SHE ALSO FEELS NAUSEATED. ABLE TO GET UP OUT OF BED WITHOUT DIFFICULTY. MINOR HEADACHE PRESENT. PT MADE AWARE OF CLEAR LIQUID DIET. PT TO START ON D5W 1/2 NS AT 125ML/HR PER DR VIDALES. CONTINUE TO MONITOR.
[2017-03-02] MEDS ORDERED: PANTOPRAZOLE SODIUM 40 MG VIAL ONE (00:46)
[2017-03-02 00:56] VITALS: BP 132/80
[2017-03-02] MEDS: IV D5 1/2 NS 1000 ML 1,000 ML IV PRN ×2 (01:06→16:26)
--- NOTE | 2017-03-02 01:30 | NUR ---
PT STILL COMPLAINS OF SEVERE ABDOMINAL PAIN, NAUSEA, AND LACK OF SLEEP. DR MATTHIEU JUNE WAS NOTIFIED AND ORDERED CARAFATE 1G PO Q 6 HRS. STATED TO START AMBIEN 10MG PO PRN INSOMNIA. PAIN MADE AWARE. CONTINUE TO MONITOR.
[2017-03-02] MEDS ORDERED: SUCRALFATE 1 G TABLET PO SCH ×2 (02:00)
[2017-03-02] MEDS ORDERED: ZOLPIDEM 5 MG TABLET PO PRN (02:15)
[2017-03-02] MEDS: ONDANSETRON 4 MG/2 ML VIAL IV PRN ×2 (02:31→10:19)
[2017-03-02] MEDS ORDERED: ZOLPIDEM 5 MG TABLET ONE ×2 (02:40→02:45)
[2017-03-02] MEDS ORDERED: ONDANSETRON 4 MG/2 ML VIAL ONE (02:42)
[2017-03-02 05:06] VITALS: BP 104/62
--- NOTE | 2017-03-02 05:30 | NUR ---
PT COMPLAINING OF PAIN TO ABDOMINAL AREA. STATES SHE ALSO IS UNABLE TO SLEEP. DR MATTHIEU JUNE WAS MESSAGED AND ORDERED BENTYL 20MG IM Q6HR PRN. NOTED AND CARRIED OUT.
[2017-03-02] MEDS ORDERED: DICYCLOMINE HCL 20 MG/2 ML AMPUL IM PRN (05:45)
[2017-03-02] MEDS ORDERED: DICYCLOMINE HCL 10 MG/5 ML UDC LIQ ONE ×2 (06:16→06:17)
[2017-03-02 06:30] LABS: BILIRUBIN,TOTAL 0.8 mg/dL (0.2-1.0); PHOSPHOROUS 4.4 mg/dL (2.5-4.9); POTASSIUM 3.8 mmol/L (3.5-5.1); TOTAL PROTEIN, SERUM 6.1 g/dL (6.4-8.2)
[2017-03-02 06:42] LABS: BASOPHILS % (AUTO) 0.4 % (0.0-2.0); EOSINOPHILS # (AUTO) 0.1 K/uL (0.0-0.7); EOSINOPHILS % (AUTO) 1.7 % (0.0-7.0); HEMATOCRIT 37.5 % (31.2-41.9); HEMOGLOBIN 12.4 g/dL (10.9-14.3); LYMPHOCYTES # (AUTO) 1.2 K/uL (20.0-40.0); LYMPHOCYTES % (AUTO) 15.1 % (20.5-51.5); MEAN CORPUSCULAR HEMOGLOBIN 28.2 uug (24.7-32.8); MEAN CORPUSCULAR HGB CONC 33 g/dL (32.3-35.6); MEAN CORPUSCULAR VOLUME 85.4 fL (75.5-95.3); MONOCYTES # (AUTO) 0.7 K/uL (2.0-10.0); MONOCYTES % (AUTO) 8.5 % (0.0-11.0); NEUTROPHILS % (AUTO) 74.3 % (38.5-71.5); PLATELET COUNT (AUTO) 156 K/uL (179-408); RED BLOOD CELL COUNT(AUTO) 4.39 MIL/uL (3.63-4.92)
[2017-03-02 07:00] LABS: WHITE BLOOD COUNT (AUTO) 8.1 K/uL (3.8-11.8)
[2017-03-02] MEDS: SUCRALFATE 1 G TABLET PO SCH ×3 (09:37→17:45)
[2017-03-02] MEDS ORDERED: FAMOTIDINE 20 MG TABLET PO SCH (09:45)
[2017-03-02] MEDS ORDERED: ACETAMINOPHEN 325 MG TABLET PO PRN (09:45)
[2017-03-02 11:58] VITALS: BP 112/64
[2017-03-02 15:24] VITALS: BP 107/63
[2017-03-02] MEDS ORDERED: KETOROLAC TROMETHAMINE 15 MG INJ IVP PRN (16:15)
[2017-03-02] MEDS ORDERED: DICY20TA11 PO (17:54)
[2017-03-02] MEDS ORDERED: ONDA4TAB5 PO (17:54)
[2017-03-03] MEDS ORDERED: ONDANSETRON HCL 4 MG TABLET PO SCH
[2017-03-03] MEDS ORDERED: DICYCLOMINE HCL 20 MG TABLET PO SCH (09:00)
== END 2017-03-02 19:00 | disposition home or self-care (01) | DRG 392 ==
LOC: ER 21:37 → MED 23:40
PROVIDERS: ADMIT Internal Medicine; ATTEND Internal Medicine
DX: A08.4 Viral intestinal infection, unspecified (principal); G43.909 Migraine, unspecified, not intractable, without status migrainosus; Z87.01 Personal history of pneumonia (recurrent)
CPT/HCPCS: 36415; 83690; 83735; 84100; 84703; 85025; 93005; A4663; C9113; J0500; J1170; J1885; J2405; J3490; J7030

== ENCOUNTER 2017-08-06 17:19 | Outpatient (CLI) | payer BC, OTHER ==
[~2017-08-06 17:19] MED LIST changes: -ALBU8HFA4 INH; +DICY20TA11 PO; -HYDR-3326 PO; -LACT1CAP57 PO; -OMEG1CAP PO; +ONDA4TAB5 PO; -[UNRECOGNIZED DRUG - OTHER] PO
== END 2017-08-06 23:59 | disposition home or self-care (01) ==
LOC: RAD 17:19
PROVIDERS: ATTEND Internal Medicine
DX: M25.461 Effusion, right knee (principal)
CPT/HCPCS: 73700

== ENCOUNTER 2017-08-06 18:53 | Emergency (ER) | payer BC, OTHER ==
[~2017-08-06] VITALS: Ht 162.6 cm; Wt 72.6 kg
[2017-08-06] MEDS ORDERED: HYDROCODONE/APAP 10-325 MG TABLET PO ONE (19:30)
[2017-08-06] MEDS ORDERED: HYDROCODONE/APAP 10-325 MG TABLET ONE (19:34)
--- NOTE | 2017-08-06 19:35 | NUR ---
Patient discharged to home in stable conditon. Written and verbal after care instructions given. Patient verbalizes understanding of instructions.
== END 2017-08-06 19:36 | disposition home or self-care (01) ==
LOC: ER 18:54
DX: M25.461 Effusion, right knee (principal); Z79.2 Long term (current) use of antibiotics; Z79.899 Other long term (current) drug therapy
CPT/HCPCS: A4663

== ENCOUNTER 2017-08-28 13:36 | Emergency (ER) | payer BC, OTHER ==
[~2017-08-28] VITALS: Ht 162.6 cm; Wt 72.6 kg
--- NOTE | 2017-08-28 14:59 | NUR ---
Patient discharged to home in stable conditon. Written and verbal after care instructions given. Patient verbalizes understanding of instructions.
== END 2017-08-28 15:01 | disposition home or self-care (01) ==
LOC: ER 13:36
DX: M54.5 Low back pain (principal); Z79.899 Other long term (current) drug therapy
CPT/HCPCS: A4663